=== PATIENT | female | born 1995 ===

== ENCOUNTER 2022-08-14 12:49 | Outpatient (CLI) | payer MEDICARE, MEDICAID, SELFPAY | END 2022-08-14 12:50 | disposition home or self-care (01) | PROVIDERS: Visit Provider Family Medicine | DX: S29.9XXA Unspecified injury of thorax, initial encounter (principal); O26.91 Pregnancy related conditions, unspecified, first trimester; V43.62XA Car passenger injured in collision with other type car in traffic accident, initial encounter; Y92.411 Interstate highway as the place of occurrence of the external cause | CPT/HCPCS: A0425; A0429 ==

== ENCOUNTER 2022-08-14 13:15 | Emergency (ER) | payer MEDICARE, MEDICAID, SELFPAY ==
[2022-08-14 13:18] VITALS: BP 111/68; PULSE 100; RESP 18; TEMP 36.9; O2SAT 100; BMI 21.1
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
[2022-08-14 13:22] VITALS: BP 148/88; PULSE 88; RESP 18; O2SAT 99
[2022-08-14 13:46] VITALS: BP 111/68; PULSE 87; RESP 18; O2SAT 100
[2022-08-14 14:04] VITALS: BP 107/68; PULSE 86; RESP 18; O2SAT 100
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
== END 2022-08-14 14:34 | disposition home or self-care (01) ==
LOC: ED 14:35
PROVIDERS: Emergency Provider Family Medicine
DX: R10.9 Unspecified abdominal pain (principal); Z3A.01 Less than 8 weeks gestation of pregnancy; V43.62XA Car passenger injured in collision with other type car in traffic accident, initial encounter
CPT/HCPCS: 76801; 99284; 99291; G0390